=== PATIENT | female | born 1930 | race Caucasian/White ===

== ENCOUNTER 2016-12-02 22:40 | Emergency (ER) | payer MEDICARE, OTHER ==
[2016-12-02 23:07] VITALS: BP 211/86
[2016-12-02 23:47] LABS: CHLORIDE,CL 97 mmol/L (98-115); SODIUM,NA 133 mmol/L (136-145)
--- NOTE | 2016-12-02 23:47 | EDM.PDOC ---
ED HPI GENERAL MEDICAL PROBLEM - General Chief Complaint: General Stated Complaint: LOSS OF MEMORY Time Seen by Provider: 12/02/16 23:21 Source of Information: Reports: Patient, Family History Limitations: Reports: No Limitations - History of Present Illness INITIAL COMMENTS - FREE TEXT/NARRATIVE: PT STATES SHE FELT FINE ALL DAY BUT THIS EVENING DEVELOPED DIFFICULTY CONCENTRATION. FAMILY SPOKE WITH PT ON PHONE EARLIER IN DAY AND SAID SHE WAS ACTING FINE. HOWEVER WHEN THEY ARRIVED AT HOUSE, PT WAS FORGETFUL AND CONFUSED. PT DENIES CP, SOB, R[place], DIZZINESS, FALL, FEVER, ABD PAIN OR N/V/D. Onset: Today Onset Date: 12/02/16 Duration: Hour(s):, Improving Improves with: Reports: None Worsens with: Reports: None Associated Symptoms: Reports: No Other Symptoms. Denies: Chest Pain, Cough, Fever/Chills, Headaches, Nausea/Vomiting, Shortness of Breath, Weakness - Related Data Home Meds: Home Meds Cephalexin [Keflex] 500 mg PO TID #21 cap 12/03/16 [Rx] Past Medical History - Past Health History Medical/Surgical History: Denies Medical/Surgical History ED ROS GENERAL - Review of Systems Review Of Systems: ROS reveals no pertinent complaints other than HPI. Constitutional: Reports: No Symptoms HEENT: Reports: No Symptoms Respiratory: Reports: No Symptoms Cardiovascular: Reports: No Symptoms Endocrine: Reports: No Symptoms GI/Abdominal: Reports: No Symptoms : Reports: No Symptoms Musculoskeletal: Reports: No Symptoms Skin: Reports: No Symptoms Neurological: Reports: Confusion. Denies: Dizziness, Headache, Trouble Speaking , Change in Speech, Gait Disturbance Psychiatric: Reports: No Symptoms Hematologic/Lymphatic: Reports: No Symptoms Immunologic: Reports: No Symptoms ED EXAM, GENERAL - Physical Exam Exam: See Below Exam Limited By: No Limitations General Appearance: Alert, WD/WN, No Apparent Distress Eye Exam: Bilateral Eye: Normal Inspection Ears: Normal External Exam, Normal Canal Nose: Normal Inspection, Normal Mucosa, No Blood Throat/Mouth: Normal Inspection, Normal Oropharynx, No Airway Compromise Head: Atraumatic, Normocephalic Neck: Normal Inspection, Supple, Non-Tender, Full Range of Motion Respiratory/Chest: No Respiratory Distress, Lungs Clear, Normal Breath Sounds, No Accessory Muscle Use, Chest Non-Tender Cardiovascular: Regular Rate, Rhythm, No Murmur GI/Abdominal: Normal Bowel Sounds, Soft, Non-Tender, No Organomegaly, No Distention, No Abnormal Bruit, No Mass Back Exam: Normal Inspection. No: CVA Tenderness (L), CVA Tenderness (R) Extremities: Normal Inspection, No Pedal Edema Neurological: Alert, Oriented, CN II-XII Intact, Normal Cognition, No Motor/ Sensory Deficits Psychiatric: Normal Affect, Normal Mood Skin Exam: Warm, Dry, Intact, Normal Color, No Rash Lymphatic: No Adenopathy Course - Vital Signs Last Recorded V/S: Last Vital Signs Temp 98.4 F 12/02/16 23:01 Pulse 90 12/02/16 23:01 Resp 16 12/02/16 23:01 BP 211/86 H 12/02/16 23:01 Pulse Ox 94 L 12/02/16 23:01 - Orders/Labs/Meds Orders: Active Orders 24 hr Category Date Time Status CBC WITH AUTO DIFF [HEME] Stat Lab 12/02/16 23:22 Ordered COMPREHENSIVE METABOLIC PN,CMP [CHEM] Stat Lab 12/02/16 23:22 Ordered UA W/MICROSCOPIC [URIN] Stat Lab 12/02/16 23:22 Uncollected - Re-Assessments/Exams Free Text/Narrative Re-Assessment/Exam: 12/03/16 00:23 PT AFEBRILE, NONTOXIC APPEARING, VSS, FEELS BETTER, FAMILY AT BEDSIDE. ROCEPHIN GIVEN / KEFLEX RX Departure - Departure Time of Disposition: 00:25 Disposition: Home, Self-Care 01 Condition: Good Clinical Impression: UTI, Urinary tract infectious disease - Discharge Information Instructions: Urinary Tract Infection, Adult, [id number] Referrals: Catia Tariq, SANDBLAST OPERATOR [Nurse Practitioner] - Forms: ED Department Discharge Additional Instructions: FOLLOW UP AT [facility] IN 3-5 DAYS FOR RECHECK. RETURN TO ER SOONER IF SYMPTOMS CONTINUE - My Orders Last 24 Hours: My Active Orders 12/02/16 23:22 CBC WITH AUTO DIFF [HEME] Stat COMPREHENSIVE METABOLIC PN,CMP [CHEM] Stat UA W/MICROSCOPIC [URIN] Stat - Assessment/Plan Last 24 Hours: My Active Orders 12/02/16 23:22 CBC WITH AUTO DIFF [HEME] Stat COMPREHENSIVE METABOLIC PN,CMP [CHEM] Stat UA W/MICROSCOPIC [URIN] Stat Assessment:: UTI Plan: F/U WITH PCP IN 3-5 DAYS
[2016-12-03] MEDS ORDERED: cefTRIAXone 1 GM Vial IM ONE (00:21)
[2016-12-03] MEDS ORDERED: Lidocaine 1% 20 ML MDV ONE (00:28)
== END 2016-12-03 00:45 | disposition home or self-care (01) ==
LOC: KA.ED 22:40
DX: N39.0 Urinary tract infection, site not specified (principal); Z88.1 Allergy status to other antibiotic agents
CPT/HCPCS: 36415; 80053; 81001; 85025; 96372; 99284; J0696

== ENCOUNTER 2016-12-21 17:41 | Emergency (ER) | payer MEDICARE, OTHER ==
[2016-12-21] MEDS ORDERED: Morphine 2 MG/ML Syringe IVPUSH ONE (18:10)
[2016-12-21] MEDS ORDERED: Aspirin 81 MG Tab.Chew PO ONE (18:17)
[2016-12-21] MEDS ORDERED: Aspirin 81 MG Tab.Chew ONE (18:17)
[2016-12-21 18:58] LABS: CHLORIDE,CL 94 mmol/L (98-115); SODIUM,NA 132 mmol/L (136-145)
[2016-12-21] MEDS ORDERED: Acetaminophen 500 MG Tab PO ONE (19:41)
--- NOTE | 2016-12-21 20:12 | EDM.PDOC ---
<Akshat Rocha - Last Filed: 12/21/16 20:42> ED HPI GENERAL MEDICAL PROBLEM - General Chief Complaint: Headache Stated Complaint: HEADACHE Time Seen by Provider: 12/21/16 17:45 Source of Information: Reports: Patient, Family (son-in-law and daughter) - History of Present Illness INITIAL COMMENTS - FREE TEXT/NARRATIVE: 86-year-old female presents to the emergency room brought in by her family this evening with complaints of a severe headache. Patient reports headache began approximately 4:00 this afternoon. She took 3 ibuprofen and reports no relief. She denies shortness of breath, chest pain, palpitations, or weakness in her arms or legs. She denies difficulty with speech, visual changes, balance or gait. She rates her pain an 8 out of 10. She had a similar headache 2 days prior but resolved. Family was concerned because she never complains her has headaches in the past. She denies any prior history of a stroke or denies prior heart problems. She takes medication for hypertension, high cholesterol, diabetes. These involve been well controlled. Her primary care is provided by Dr.Vani Owens. She is having some recent lab work and is currently being treated for a urinary tract infection. She's not had any confusion or agitation. She also has a history of mildly low sodium and there is discussion about changing her blood pressure medications she is on a check calcium channel sofia. Her blood pressures have been fairly well controlled but are elevated this evening upon arrival to the ER. Onset: Today Onset Date: 12/21/16 Onset Time: 16:00 Duration: Hour(s):, Constant Location: Reports: Head Quality: Reports: Throbbing Severity: Severe Improves with: Reports: None Worsens with: Reports: None Associated Symptoms: Reports: Headaches. 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 Headache Pain Score (Numeric/FACES): 8 - Related Data Allergies Allergy/AdvReac Type Severity Reaction Status Date / Time Sulfa (Sulfonamide Allergy Muscle Verified 12/21/16 18:00 Antibiotics) Aches Home Meds: Home Meds Diltiazem [Dilacor XR] 240 mg PO DAILY 12/03/16 [History] Simvastatin [Zocor] 20 mg PO BEDTIME 12/03/16 [History] sitaGLIPtin Phos/Metformin HCl [Janumet 50-500 MG] 50 - 500 mg PO DAILY [History] Aspirin [Halfprin] 81 mg PO DAILY 12/21/16 [History] Ciprofloxacin HCl [Cipro] 500 mg PO BID 12/21/16 [History] Past Medical History - Past Health History Medical/Surgical History: Denies Medical/Surgical History HEENT History: Reports: Cataract, Hard of Hearing, Impaired Vision Cardiovascular History: Reports: High Cholesterol, Hypertension Gastrointestinal History: Reports: Chronic Constipation, GERD Musculoskeletal History: Reports: Arthritis Psychiatric History: Reports: Anxiety, Depression Endocrine/Metabolic History: Reports: Diabetes, Type II - Past Surgical History HEENT Surgical History: Reports: Cataract Surgery GI Surgical History: Reports: Appendectomy Female Surgical History: Reports: Hysterectomy Social & Family History - Tobacco Use Smoking Status *Q: Never Smoker Second Hand Smoke Exposure: No - Caffeine Use Caffeine Use: Reports: Coffee - Recreational Drug Use Recreational Drug Use: No ED ROS GENERAL - Review of Systems Review Of Systems: See Below Constitutional: Denies: Fever, Chills, Weakness, Fatigue, Diaphoresis HEENT: Reports: Glasses Respiratory: Denies: Shortness of Breath, Cough Cardiovascular: Reports: Blood Pressure Problem. Denies: Chest Pain, Dyspnea on Exertion, Edema, Lightheadedness, Palpitations Endocrine: Reports: High Glucose GI/Abdominal: Reports: No Symptoms : Reports: Other (recent UTI, on meds) Musculoskeletal: Denies: Neck Pain, Shoulder Pain, Arm Pain, Back Pain, Muscle Stiffness Skin: Reports: No Symptoms Neurological: Reports: Headache. Denies: Confusion, Dizziness, Numbness, Paresthesia, Pre-Existing Deficit, Seizure, Syncope, Tingling, Trouble Speaking , Difficulty Walking, Weakness, Change in Speech, Gait Disturbance Psychiatric: Reports: No Symptoms Hematologic/Lymphatic: Reports: No Symptoms Immunologic: Reports: No Symptoms - Physical Exam Exam: See Below Exam Limited By: No Limitations General Appearance: Alert, WD/WN, No Apparent Distress Eye Exam: Bilateral Eye: EOMI, PERRL Ears: Normal External Exam, Normal Canal, Hearing Grossly Normal, Normal TMs Nose: Normal Inspection, No Blood Throat/Mouth: Normal Inspection, Normal Lips, Normal Oropharynx, Normal Voice, No Airway Compromise Head Exam: Atraumatic, Normocephalic Neck: Normal Inspection, Supple, Non-Tender, Full Range of Motion. No: Carotid Bruit, Lymphadenopathy (L), Lymphadenopathy (R), Thyromegaly Respiratory/Chest: No Respiratory Distress, Lungs Clear, Normal Breath Sounds, No Accessory Muscle Use, Chest Non-Tender Cardiovascular: Normal Peripheral Pulses, Regular Rate, Rhythm, No Edema, No JVD GI/Abdominal: Normal Bowel Sounds, Soft, No Abnormal Bruit Neuro Exam (Abbreviated): Alert, Oriented, CN II-XII Intact, Normal Cognition, Normal Reflexes, No Motor/Sensory Deficits DTR: 2+: Bicep (R), Bicep (L), Tricep (R), Tricep (L), Patella (R), Patella (L) , Achilles (R), Achilles (L) Back Exam: Normal Inspection, Full Range of Motion Extremities: Normal Inspection, Normal Range of Motion, Non-Tender, No Pedal Edema, Normal Capillary Refill, Other (motor strength are 5 out of 5 bilaterally upper and lower extremities. Patient has no pain or discomfort with gentle range of motion of the ankle knees or hips fingers wrist elbows or shoulders.) Psychiatric: Normal Affect, Normal Mood Skin Exam: Warm, Dry, Intact, Normal Color, No Rash EKG INTERPRETATION EKG Date: 12/21/16 Time: 18:15 Rhythm: NSR Rate (Beats/Min): 77 P-Wave: Present QRS: Normal ST-T: Depressed QT: Normal Comparison: NA - No Prior EKG EKG Interpretation Comments: Normal sinus rhythm Anterior septal infarct, age undetermined Abnormal ECG Course - Vital Signs Last Recorded V/S: Last Vital Signs Temp 99.7 F 12/21/16 17:55 Pulse 75 12/21/16 17:55 Resp 16 12/21/16 17:55 BP 232/97 H 12/21/16 17:55 Pulse Ox 95 12/21/16 17:55 - Orders/Labs/Meds Orders: Active Orders 24 hr Category Date Time Status EKG Documentation Completion [RC] ASDIRECTED Care 12/21/16 18:07 Active Head wo Cont [CT] Stat Exams 12/21/16 19:50 Taken EKG 12 Lead [EK] Routine Ther 12/21/16 18:06 Ordered Labs: Laboratory Tests 12/21/16 12/21/16 12/21/16 Range/Units 17:50 17:50 17:50 WBC 7.6 (5.0-10.0) 10^3/uL RBC 4.81 (3.80-5.50) 10^6/uL Hgb 14.0 (12.0-16.0) g/dL Hct 41.4 (37.0-47.0) % MCV 86.0 (82.0-92.0) fL MCH 29.0 (27.0-31.0) pg MCHC 33.7 (32.0-36.0) g/dL RDW 13.1 (11.5-14.5) % Plt Count 237 (150-300) 10^3/uL MPV 7.9 (7.4-10.4) fL Neut % (Auto) 54.0 (50.0-70.0) % Lymph % (Auto) 35.9 (20.0-40.0) % Glasscock % (Auto) 7.3 (2.0-8.0) % Eos % (Auto) 2.1 (1.0-3.0) % Baso % (Auto) 0.7 (0.0-1.0) % Neut # (Auto) 4.0 (2.5-7.0) 10^3/uL Lymph # (Auto) 2.7 (1.0-4.0) 10^3/uL Glasscock # (Auto) 0.6 (0.1-0.8) 10^3/uL Eos # (Auto) 0.2 (0.1-0.3) 10^3/uL Baso # (Auto) 0.1 (0.0-0.1) 10^3/uL ESR 10 (0-20) mm/hr Sodium 132 L (136-145) mmol/L Potassium 4.1 (3.3-5.3) mmol/L Chloride 94 L (98-115) mmol/L Carbon Dioxide 28.5 (21.0-32.0) mmol/L BUN 14 (6-25) mg/dL Creatinine 0.69 (0.51-1.17) mg/dL Est Cr Clr Drug Dosing 42.82 mL/min Estimated GFR (MDRD) > 60 mL/min Glucose 98 (70-110) mg/dL Calcium 8.7 (8.7-10.3) mg/dL Troponin I 0.07 (0.00-0.070) ng/mL C-Reactive Protein 0.2 (0.0-0.9) mg/dL Specimen Type Urine Color (YELLOW) Urine Appearance (CLEAR) Urine pH (5.0-9.0) Ur Specific Ulster (1.005-1.030) Urine Protein (NEGATIVE) mg/dL Urine Glucose (UA) (NEGATIVE) mg/dL Urine Ketones (NEGATIVE) mg/dL Urine Occult Blood (NEGATIVE) Urine Nitrite (NEGATIVE) Urine Bilirubin (NEGATIVE) Urine Urobilinogen (0.2-1.0) E.U./dL Ur Leukocyte Esterase (NEGATIVE) Urine RBC /HPF Urine WBC /HPF Ur Epithelial Cells /LPF Urine Bacteria (NONE TO FEW) /HPF Hyaline Casts (NEGATIVE) /LPF 12/21/16 Range/Units 18:50 WBC (5.0-10.0) 10^3/uL RBC (3.80-5.50) 10^6/uL Hgb (12.0-16.0) g/dL Hct (37.0-47.0) % MCV (82.0-92.0) fL MCH (27.0-31.0) pg MCHC (32.0-36.0) g/dL RDW (11.5-14.5) % Plt Count (150-300) 10^3/uL MPV (7.4-10.4) fL Neut % (Auto) (50.0-70.0) % Lymph % (Auto) (20.0-40.0) % Glasscock % (Auto) (2.0-8.0) % Eos % (Auto) (1.0-3.0) % Baso % (Auto) (0.0-1.0) % Neut # (Auto) (2.5-7.0) 10^3/uL Lymph # (Auto) (1.0-4.0) 10^3/uL Glasscock # (Auto) (0.1-0.8) 10^3/uL Eos # (Auto) (0.1-0.3) 10^3/uL Baso # (Auto) (0.0-0.1) 10^3/uL ESR (0-20) mm/hr Sodium (136-145) mmol/L Potassium (3.3-5.3) mmol/L Chloride (98-115) mmol/L Carbon Dioxide (21.0-32.0) mmol/L BUN (6-25) mg/dL Creatinine (0.51-1.17) mg/dL Est Cr Clr Drug Dosing mL/min Estimated GFR (MDRD) mL/min Glucose (70-110) mg/dL Calcium (8.7-10.3) mg/dL Troponin I (0.00-0.070) ng/mL C-Reactive Protein (0.0-0.9) mg/dL Specimen Type Urincc Urine Color Yellow (YELLOW) Urine Appearance Clear (CLEAR) Urine pH 7.5 (5.0-9.0) Ur Specific [place] 1.015 (1.005-1.030) Urine Protein Negative (NEGATIVE) mg/dL Urine Glucose (UA) Negative (NEGATIVE) mg/dL Urine Ketones Negative (NEGATIVE) mg/dL Urine Occult Blood Negative (NEGATIVE) Urine Nitrite Negative (NEGATIVE) Urine Bilirubin Negative (NEGATIVE) Urine Urobilinogen 0.2 (0.2-1.0) E.U./dL Ur Leukocyte Esterase Small H (NEGATIVE) Urine RBC 0-5 /HPF Urine WBC 10-20 H /HPF Ur Epithelial Cells Few /LPF Urine Bacteria Few (NONE TO FEW) /HPF Hyaline Casts Rare H (NEGATIVE) /LPF Meds: Medications Discontinued Medications Generic Name Dose Route Start Last Admin Trade Name Juanpabloq PRN Reason Stop Dose Admin Acetaminophen 1,000 mg 12/21/16 19:41 12/21/16 19:56 Tylenol Extra Strength PO 12/21/16 19:42 1,000 mg ONETIME ONE Administration Aspirin 324 mg 12/21/16 18:17 12/21/16 18:19 Aspirin PO 12/21/16 18:18 324 mg ONETIME ONE Administration Aspirin Confirm 12/21/16 18:17 12/21/16 18:28 Aspirin Administered 12/21/16 18:18 Not Given Dose 324 mg .ROUTE .STK-MED ONE Morphine Sulfate 2 mg 12/21/16 18:10 12/21/16 18:38 Morphine IVPUSH 12/21/16 18:11 2 mg ONETIME ONE Administration - Re-Assessments/Exams Free Text/Narrative Re-Assessment/Exam: 12/21/16 19:35 Patient reports that her headache had improved at least by 50%. She was given 2 mg of IV morphine. Her blood pressures come down nicely as her pain improved. Free Text/Narrative Re-Assessment/Exam: 12/21/16 20:36 Patient was given 1000 mg of Tylenol by mouth. CT scan was ordered for her head. She was resting comfortably. Her exam remained unchanged and remain neurologically intact. Departure - Departure Disposition: Home, Self-Care 01 Clinical Impression: Hypertensive urgency Headache Qualifiers: Headache type: unspecified Headache chronicity pattern: acute headache - Discharge Information Referrals: Kavitha Owens MD [Primary Care Provider] - Forms: ED Department Discharge Additional Instructions: 1. TAke your regular home medications as directed. 2. Continue your antibiotic for the UTI as directed and followup with your PCP for recheck of the urine after the antibiotic is completed. 3. Drink 8 cups of water daily and continue the cranberry juice to see if you can improve the recurrent UTI problem. 4. Follow up with your PCP tomorrow for recheck of the headache and blood pressure. 5. Take the hydrocodone as directed if needed for your headache tonight. <Leonardo Woods - Last Filed: 12/21/16 21:30> Course - Re-Assessments/Exams Free Text/Narrative Re-Assessment/Exam: 12/21/16 21:25 Reviewed Akshat's note and the test results for this patient. Head CT is negative. Patient is feeling much better, headache is almost gone, and blood pressure has stabilized at 174 systolic. Discussed findings and treatment plan with patient and her family. She wonders what she should do if the headache comes back tonight before she sees Dr. Plummer tomorrow. I feel that with all the normal workup tonight it would be reasonable to have a few Hydrocodone if she needs so will send home #4 5/325 with her to use if needed. Patient is stable and exam and neurological status are unchanged at discharge. Departure - Departure Time of Disposition: 21:17 Condition: Good
[2016-12-21] MEDS ORDERED: Acetaminophen/HYDROcodone 325-5 MG Tab PO ONE (21:23)
[2016-12-21 23:33] VITALS: BP 174/78
== END 2016-12-21 21:40 | disposition home or self-care (01) ==
LOC: KA.ED 17:41
DX: I16.0 Hypertensive urgency (principal); I10 Essential (primary) hypertension; M19.90 Unspecified osteoarthritis, unspecified site; E11.9 Type 2 diabetes mellitus without complications; F32.9 Major depressive disorder, single episode, unspecified; F41.9 Anxiety disorder, unspecified; E78.00 Pure hypercholesterolemia, unspecified; K21.9 Gastro-esophageal reflux disease without esophagitis; Z88.2 Allergy status to sulfonamides; Z79.82 Long term (current) use of aspirin; Z79.899 Other long term (current) drug therapy; Z90.89 Acquired absence of other organs; Z90.710 Acquired absence of both cervix and uterus
CPT/HCPCS: 70450; 80048; 81001; 84484; 85025; 85651; 86140; 96374; 99284; A9270; J2270; 93005

== ENCOUNTER 2017-02-08 09:28 | Observation (INO) | payer MEDICARE, OTHER ==
[2017-02-08] MEDS ORDERED: Sodium Chloride 0.9% 5 ML Syringe FLUSH PRN (09:42)
--- NOTE | 2017-02-08 09:52 | EDM.PDOC ---
ED HPI GENERAL MEDICAL PROBLEM - General Chief Complaint: Neurological Problem Stated Complaint: POSSIBLE STROKE? Time Seen by Provider: 02/08/17 09:42 Source of Information: Reports: Patient, EMS, EMS Notes Reviewed, Family History Limitations: Reports: No Limitations - History of Present Illness INITIAL COMMENTS - FREE TEXT/NARRATIVE: PER PT'S DAUGHTER, PT WAS FOUND AT 0815 TODAY LYING ON BED AND NOT VERBALLY RESPONDING AND SEEMED WEAK IN EXTREMITIES. DAUGHTER STATES BED WAS MADE AND MOTHER WAS LYING ON TOP OF COMFORTER. PT WENT TO SLEEP AT 2130 LAST NIGHT. UNEVENTFUL EVENING ACCORDING TO DAUGHTER. UNSURE OF EVENTS THIS AM PRIOR TO SYMPTOMS. CALLED 911 AND BY TIME EMS RESPONDED PT'S WAS VERBALIZING AND MOVING ALL EXTREMITIES. DURING TRANSPORT, PT BECAME ANXIOUS AND UNABLE TO VERBALIZE BUT WAS MOVING EXTREMITIES. PT FOLLOWS MY COMMANDS BUT APPEARS ANXIOUS. DAUGHTER STATES PT HAS BEEN DEPRESSED LATELY BECAUSE SHE IS BEING PLACED IN ASSISTED LIVING. Onset: Today Onset Date: 02/08/17 Onset Time: 08:15 - Related Data Allergies Allergy/AdvReac Type Severity Reaction Status Date / Time Sulfa (Sulfonamide Allergy Muscle Verified 12/21/16 18:00 Antibiotics) Aches Home Meds: Home Meds Diltiazem [Dilacor XR] 240 mg PO DAILY 12/03/16 [History] Simvastatin [Zocor] 20 mg PO BEDTIME 12/03/16 [History] sitaGLIPtin Phos/Metformin HCl [Janumet 50-500 MG] 50 - 500 mg PO DAILY [History] Aspirin [Halfprin] 81 mg PO DAILY 12/21/16 [History] Ciprofloxacin HCl [Cipro] 500 mg PO BID 12/21/16 [History] Past Medical History - Past Health History Medical/Surgical History: Denies Medical/Surgical History HEENT History: Reports: Cataract, Hard of Hearing, Impaired Vision Cardiovascular History: Reports: High Cholesterol, Hypertension Gastrointestinal History: Reports: Chronic Constipation, GERD Genitourinary History: Reports: UTI, Recurrent Musculoskeletal History: Reports: Arthritis Psychiatric History: Reports: Anxiety, Depression Endocrine/Metabolic History: Reports: Diabetes, Type II - Past Surgical History HEENT Surgical History: Reports: Cataract Surgery GI Surgical History: Reports: Appendectomy Female Surgical History: Reports: Hysterectomy Social & Family History - Tobacco Use Smoking Status *Q: Never Smoker Second Hand Smoke Exposure: No - Caffeine Use Caffeine Use: Reports: Coffee - Recreational Drug Use Recreational Drug Use: No ED ROS GENERAL - Review of Systems Review Of Systems: ROS reveals no pertinent complaints other than HPI. Constitutional: Reports: No Symptoms HEENT: Reports: No Symptoms Respiratory: Reports: No Symptoms Cardiovascular: Reports: No Symptoms Endocrine: Reports: No Symptoms GI/Abdominal: Reports: No Symptoms : Reports: No Symptoms Musculoskeletal: Reports: No Symptoms Skin: Reports: No Symptoms Neurological: Reports: Weakness, Change in Speech Psychiatric: Reports: Agitation, Anxiety Hematologic/Lymphatic: Reports: No Symptoms Immunologic: Reports: No Symptoms ED EXAM, NEURO - Physical Exam Exam: See Below Exam Limited By: No Limitations General Appearance: Alert, Anxious Eye Exam: Bilateral Eye: Normal Inspection Nose: Normal Inspection, Normal Mucosa, No Blood Throat/Mouth: Normal Inspection, Normal Oropharynx, No Airway Compromise Head Exam: Atraumatic, Normocephalic Neck: Normal Inspection, Supple Respiratory/Chest: No Respiratory Distress, Lungs Clear, Normal Breath Sounds, No Accessory Muscle Use, Chest Non-Tender Cardiovascular: Regular Rate, Rhythm, No Murmur GI/Abdominal: Normal Bowel Sounds, Soft, Non-Tender, No Organomegaly, No Distention, No Abnormal Bruit, No Mass Neurological: Alert, Normal Dorsiflexion, CN II-XII Intact, Normal Plantar Flexion, No Motor/Sensory Deficits, Other (MOVES EXTREMITIES BUT DOES NOT VERBALIZE. NO NEUROFOCAL DEFICITS NOTED) Back Exam: Normal Inspection. No: CVA Tenderness (L), CVA Tenderness (R) Extremities: Normal Inspection, No Pedal Edema Psychiatric: Anxious Skin Exam: Warm, Dry, Intact, Normal Color, No Rash EKG INTERPRETATION EKG Date: 02/08/17 Time: 09:50 Rhythm: NSR Rate (Beats/Min): 82 [place]: Normal P-Wave: Present QRS: Normal ST-T: Normal QT: Normal Comparison: No Change Course - Orders/Labs/Meds Orders: Active Orders 24 hr Category Date Time Status EKG Documentation Completion [RC] ASDIRECTED Care 02/08/17 09:43 Active Peripheral IV Care [RC] . DIRECTED Care 02/08/17 09:43 Active Chest 1V Frontal [CR] Stat Exams 02/08/17 09:42 Ordered Head wo Cont [CT] Stat Exams 02/08/17 09:42 Ordered COMPREHENSIVE METABOLIC PN,CMP [CHEM] Stat Lab 02/08/17 09:42 Ordered INR,PT,PROTHROMBIN TIME [COAG] Stat Lab 02/08/17 09:42 Ordered PTT,PARTIAL THROMBOPLSTIN TIME [COAG] Stat Lab 02/08/17 09:42 Ordered TROPONIN I [CHEM] Stat Lab 02/08/17 09:42 Ordered UA W/MICROSCOPIC [URIN] Stat Lab 02/08/17 10:02 Uncollected Sodium Chloride 0.9% [Syrex Flush] Med 02/08/17 09:42 Active 5 ml FLUSH Q8HR PRN Peripheral IV Insertion Adult [OM.PC] Urgent Oth 02/08/17 09:42 Ordered EKG 12 Lead [EK] Stat Ther 02/08/17 09:42 Ordered Medication Orders Sodium Chloride (Syrex Flush) 5 ml FLUSH Q8HR PRN PRN Reason: Keep Vein Open Labs: Laboratory Tests 02/08/17 Range/Units 09:45 WBC 9.7 (5.0-10.0) 10^3/uL RBC 5.17 (3.80-5.50) 10^6/uL Hgb 14.8 (12.0-16.0) g/dL Hct 45.4 (37.0-47.0) % MCV 87.8 (82.0-92.0) fL MCH 28.6 (27.0-31.0) pg MCHC 32.6 (32.0-36.0) g/dL RDW 12.8 (11.5-14.5) % Plt Count 277 (150-300) 10^3/uL MPV 7.3 L (7.4-10.4) fL Neut % (Auto) 68.9 (50.0-70.0) % Lymph % (Auto) 23.3 (20.0-40.0) % [place] % (Auto) 6.3 (2.0-8.0) % Eos % (Auto) 1.2 (1.0-3.0) % Baso % (Auto) 0.3 (0.0-1.0) % Neut # (Auto) 6.7 (2.5-7.0) 10^3/uL Lymph # (Auto) 2.3 (1.0-4.0) 10^3/uL [place] # (Auto) 0.6 (0.1-0.8) 10^3/uL Eos # (Auto) 0.1 (0.1-0.3) 10^3/uL Baso # (Auto) 0.0 (0.0-0.1) 10^3/uL Meds: Medications Generic Name Dose Route Start Last Admin Trade Name Freq PRN Reason Stop Dose Admin Sodium Chloride 5 ml 02/08/17 09:42 Syrex Flush FLUSH Q8HR PRN Keep Vein Open - Re-Assessments/Exams Free Text/Narrative Re-Assessment/Exam: 02/08/17 10:57 PT AFEBRILE, NONTOXIC APPEARING, VSS, DAUGHTER AT BEDSIDE. DISCUSSED CASE WITH DR BECK, NEUROSURGERY AT [facility]. BECAUSE [facility] WITHOUT NEURO FOCAL DEFICITS, RECOMMENDS ADMISSION AND NEURO CHECKS AND NO TRANSFER AT THIS TIME. DISCUSSED CASE WITH DR MUNGUIA, [facility], WILL ADMIT AND FOLLOW Departure - Departure Time of Disposition: 11:00 Disposition: Admitted As Inpatient 67 Condition: Fair Clinical Impression: Hyponatremia, Anxiety and depression Altered mental status, unspecified Qualifiers: Altered mental status type: unspecified Qualified Code(s): R41.82 - Altered mental status, unspecified - Discharge Information Referrals: Kavitha Owens MD [Primary Care Provider] - Forms: ED Department Discharge - My Orders Last 24 Hours: My Active Orders 02/08/17 09:42 Chest 1V Frontal [CR] Stat Head wo Cont [CT] Stat COMPREHENSIVE METABOLIC PN,CMP [CHEM] Stat INR,PT,PROTHROMBIN TIME [COAG] Stat PTT,PARTIAL THROMBOPLSTIN TIME [COAG] Stat TROPONIN I [CHEM] Stat Sodium Chloride 0.9% [Syrex Flush] 5 ml FLUSH Q8HR PRN Peripheral IV Insertion Adult [OM.PC] Urgent EKG 12 Lead [EK] Stat 02/08/17 09:43 EKG Documentation Completion [RC] ASDIRECTED Peripheral IV Care [RC] . DIRECTED 02/08/17 10:02 UA W/MICROSCOPIC [URIN] Stat - Assessment/Plan Last 24 Hours: My Active Orders 02/08/17 09:42 Chest 1V Frontal [CR] Stat Head wo Cont [CT] Stat COMPREHENSIVE METABOLIC PN,CMP [CHEM] Stat INR,PT,PROTHROMBIN TIME [COAG] Stat PTT,PARTIAL THROMBOPLSTIN TIME [COAG] Stat TROPONIN I [CHEM] Stat Sodium Chloride 0.9% [Syrex Flush] 5 ml FLUSH Q8HR PRN Peripheral IV Insertion Adult [OM.PC] Urgent EKG 12 Lead [EK] Stat 02/08/17 09:43 EKG Documentation Completion [RC] ASDIRECTED Peripheral IV Care [RC] . DIRECTED 02/08/17 10:02 UA W/MICROSCOPIC [URIN] Stat Assessment:: ANXIETY / PANIC ATTACK VS TIA Plan: ADMIT INPATIENT
[2017-02-08 10:32] LABS: CHLORIDE,CL 93 mmol/L (98-115); SODIUM,NA 129 mmol/L (136-145)
[2017-02-08] MEDS ORDERED: Sodium Chloride 0.9% 1,000 ML IV ONE ×2 (10:44→22:50)
[2017-02-08] MEDS ORDERED: Acetaminophen 325 MG Tab PO PRN (11:04)
--- NOTE | 2017-02-08 12:20 | PCM.HP ---
H&P History of Present Illness - General Date of Service: 02/08/17 Admit Problem/Dx: Acute encephalopathy Source of Information: Patient, EMS, Family, Old Records, Provider (Ambrosio Swartz NP (ED provider)) History Limitations: Reports: Altered Mental Status - History of Present Illness Initial Comments - Free Text/Narative: Ms. Fields is an 86yoF who was in her usual state of health last evening when she went to bed around 2130. She lives with her daughter and son-in-law in [facility] and was noted this morning around 0815 to be confused and lying on her made bed. She was initially not speaking and seemed to be generally weak , but without any other focal deficit. They called 911 and upon EMS arrival, she was speaking but seemed to be confused. At times en route, she was less confused and was able to talk about her children and grandchildren, while at other times was just answering yes to most questions and seemed quite confused. She was evaluated in the [facility] ED and was noted to have an altering level of consciousness and ability to appropriately answer questions and interact with examination. Work-up, including VS, CBC, CMP, troponin, UA, CXR, and CT head were overall unremarkable and provider discussed the case with Dr. Contreras , neurosurgeon cardiac catheterization technician with [facility], who felt that presentation was not consistent with acute neurological event and recommended admission for consideration of other etiology. Upon my evaluation of the patient in the ED about 1.5 hours after initial arrival in the ED, she was accompanied by her daughter and son-in-law who state this is quite out of the ordinary for her. Josefina is able to state her name and answer some questions, including that she is in no pain except in her abdomen. Daughter and son-in-law state that she is not confused at baseline and yesterday seemed to be a typical day without any concerns. There has been increased stress in the past few weeks as she currently lives with them in [facility] and this will be the first year she isn't going to be accompanying them to [place] for the winter and instead likely going to live in an assisted living facility. She saw her PCP Catia Tariq CNP, earlier last week and was started on mirtazapine for insomnia and possibility of mood disorder. She had taken this in the past several years ago and didn't start taking consistently, with the daughter only knowing that she took it for the first time last evening before going to bed. Josfeina manages her own medications, without prior concerns, but the daughter questions the possibility of a medication mix-up or that she took more than 1 tablet of the mirtazapine last night. She has otherwise been taking her other prescribed medications to their knowledge. She has remotely been on lorazepam, but not for over a year. Daughter is unaware of any other medications she had in her drawer. They deny any other concerns about her lately; see ROS. - Related Data Allergies/Adverse Reactions: Allergies Allergy/AdvReac Type Severity Reaction Status Date / Time Sulfa (Sulfonamide Allergy Muscle Verified 02/08/17 13:27 Antibiotics) Aches Home Medications: Home Meds Diltiazem [Dilacor XR] 240 mg PO BEDTIME 12/03/16 [History] Aspirin [Halfprin] 81 mg PO DAILY 12/21/16 [History] Docusate Sodium [Colace] 100 mg PO BEDTIME 02/08/17 [History] Gabapentin [Neurontin] 300 mg PO BEDTIME 02/08/17 [History] Hydrochlorothiazide 12.5 mg PO QAM 02/08/17 [History] Losartan Potassium 100 mg PO BEDTIME 02/08/17 [History] Mirtazapine [Remeron] 15 mg PO BEDTIME PRN 02/08/17 [History] Past Medical History - Past Health History Medical/Surgical History: Denies Medical/Surgical History HEENT History: Reports: Cataract, Hard of Hearing, Impaired Vision Cardiovascular History: Reports: High Cholesterol, Hypertension Gastrointestinal History: Reports: Chronic Constipation, GERD Genitourinary History: Reports: UTI, Recurrent Musculoskeletal History: Reports: Arthritis Psychiatric History: Reports: Anxiety, Depression Endocrine/Metabolic History: Reports: Diabetes, Type II - Past Surgical History HEENT Surgical History: Reports: Cataract Surgery GI Surgical History: Reports: Appendectomy Female Surgical History: Reports: Hysterectomy Social & Family History - Tobacco Use Smoking Status *Q: Never Smoker Second Hand Smoke Exposure: No - Caffeine Use Caffeine Use: Reports: Coffee - Recreational Drug Use Recreational Drug Use: No H&P Review of Systems - Review of Systems: Review Of Systems: See Below General: Reports: Weakness (generalized, nonfocal). Denies: Fever, Chills, Malaise, Fatigue, Diaphoresis, Decreased Appetite HEENT: Denies: Ear Pain, Eye Pain, Headaches, Sinus Congestion, Sore Throat, Visual Changes Pulmonary: Denies: Shortness of Breath, Wheezing, Cough Cardiovascular: Denies: Chest Pain, Palpitations, Edema, Syncope Gastrointestinal: Reports: Abdominal Pain. Denies: Anorexia, Constipation, Diarrhea, Decreased Appetite Genitourinary: Reports: Frequency (chronic), Incontinence (chronic, small volume ). Denies: Dysuria, Burning, Pain, Hematuria Musculoskeletal: Reports: Joint Pain (chronic bilateral knee pain). Denies: Neck Pain, Back Pain, Muscle Pain Skin: Denies: Cyanosis, Pallor, Rash Psychiatric: Reports: Confusion, Depression, Anxiety. Denies: Agitation, Hallucinations, Suicidal Ideation Neurological: Reports: Confusion, Trouble Speaking, Change in Speech. Denies: Dizziness, Headache, Numbness, Seizure, Syncope, Tremors, Gait Disturbance Exam - Exam Exam: See Below - Exam Physical Exam Comments:: GENERAL: Elderly white female lying in ED bed appearing anxious, but in no acute respiratory distress. HEENT: Normocephalic, atraumatic. Conjunctiva clear, pupils equal round and reactive to light but with moderate dilation on initial evaluation given the bright room, extraocular movements intact. Nares patent without discharge. Mucous membranes moist, posterior pharynx unremarkable. NECK: Supple, no masses. CV: Regular rate and rhythm, no murmurs, rubs, or gallops. 2+ radial, PT, and DP pulses. PULMONARY: Normal effort, clear to auscultation bilaterally, no wheezes, rales, or rhonchi. ABDOMEN: Initial evaluation with lower abdominal distension and tenderness to light palpation subsequently resolved after straight catheterization of 1300cc urine. Follow-up evaluation with positive bowel sounds and soft, nontender, nondistended. EXTREMITIES: Trace non-pitting edema of ankles and lower legs. No cyanosis or clubbing. MUSCULOSKELETAL: Moves all extremities well with prompting. Moving frequently. NEUROLOGICAL: CN II-XII intact. Sensation intact to painful stimuli in all extremities. No motor drift in any extremity. Limb ataxia unable to be understood so not performed. NIHSS = 4 (2 for not knowing month or age, 2 for aphasia). No nuchal rigidity or neck pain to palpation. DERMATOLOGIC: No rashes or suspicious lesions in exposed areas. PSYCHIATRIC: Alert, waxing and waning level of consciousness, obviously confused with aphasia but without dysarthria or word slurring, oriented to person but not place/time/situation, interactive but frequently answering "yes" to all questions inappropriately, anxious affect. - Patient Data Result Diagrams: 02/08/17 09:45 02/08/17 09:45 *Q Meaningful Use (ADM) - VTE *Q VTE Criteria *Q: - Stroke *Q Stroke Criteria *Q: - AMI *Q AMI Criteria *Q: Problem List Initiated/Reviewed/Updated: Yes Orders Last 24hrs: Active Orders 24 hr Category Date Time Status Resuscitation Status Routine Resus Stat 02/08/17 11:03 Ordered Medication Orders Acetaminophen (Tylenol) 650 mg PO Q4H PRN PRN Reason: analgesia/fever Sodium Chloride (Syrex Flush) 5 ml FLUSH Q8HR PRN PRN Reason: Keep Vein Open Assessment/Plan Comment:: Ms. Fields is an 86yoF with history notable for HTN and anxiety admitted for acute encephalopathy. Hospitalization problems: # Acute encephalopathy: Waxing and waning level of consciousness without focal neurological deficit consistent with acute delirium. Etiology favors anticholinergic syndrome in setting of recent initiation of mirtazepine, given the concomitant presence of urinary retention and moderately dilated pupils. She took mirtazapine for the first time in at least several nights last night and daughter also questions the possibility of her having taken more than one tablet or other medications in addition. Other etiologies more highly considered include hypertensive encephalopathy and acute anxiety. Of note, her mild hyponatremia is chronic for the past year. Other pertinent findings and work-up includes no focal neurological deficit (including any hx of seizure activity), no notable cardiac or pulmonary findings, unremarkable CT head, no evidence of infection (VS not consistent with SIRS/sepsis, normal WBC, normal CXR, normal UA, benign abdominal examination following catheterization of large volume of urine), no other CBC/CMP/cardiac enzyme abnormalities, no other known ingestions or other chronic medications known to cause acute delirium or withdrawal, or trauma. Of note, the case was discussed with Dr. Contreras who reviewed the CT head and did not feel the presentation was consistent with an acute cerebrovascular event and recommended admission for monitoring and evaluation for other etiologies. - Frequent neuro checks (q1h x4h, then q2h x4h, then q4h) - Continuous cardiac monitoring and close VS monitoring - Urine toxicology - Ammonia - AM CBC, CMP, TSH, B12 # Hypertension: Elevated upon initial evaluation in the ED with SBP in the 180s. Continue close monitoring. Continue home regimen and consider acute lowering if SBP persistently >180. # Urinary retention: Straight catheterization performed of 1300cc of clear urine. No prior hx of retention, which favors anticholinergic syndrome, as discussed above. # Hyponatremia and hypochloremia: Chronic and stable. Likely secondary to thiazide use. Recheck tomorrow. # Anxiety: Chronic and stable as of late according to daughter. There has been increased stress lately with consideration of a move into assisted living, but no recent acute stress events and when she went to bed last night, there were no concerns that the daughter knew about. She was recently started on mirtazapine for insomnia and mood disorder. Chronic conditions: # Constipation: Stable. Continue Miralax and docusate prn. # Hx DMT2: A1c 5.6% 1 month ago. BG reasonable in ED. Will check intermittently. Continue without medications. # Peripheral neuropathy: Stable. Hold gabapentin in the setting of acute ecephalopathy. # Osteoarthritis: Stable. Continue Tylenol prn. Hospitalization details: # FEN: No IVF. Electrolytes with chronic and stable hyponatremia and hypochloremia, as above; recheck tomorrow. Heart healthy diet. # PPX: Enoxaparin for DVT ppx. # Code status: DNR/DNI. # Emergency contact: Camilla Pearce, daughter and [facility] ([phone]). # Disposition: Admit to observation status for acute encephalopathy.
[2017-02-08] MEDS ORDERED: Ondansetron 4 MG/2 ML SDV IVPUSH PRN (14:30)
[2017-02-08] MEDS ORDERED: Labetalol 100 MG/20 ML MDV IVPUSH ONE (16:40)
[2017-02-08] MEDS ORDERED: Acetaminophen 650 MG Supp RECTAL PRN (19:39)
[2017-02-08] MEDS ORDERED: Lidocaine 2% 100 MG/5 ML Syringe IVPUSH PRN (20:26)
[2017-02-08] MEDS ORDERED: Atropine 0.1 MG/ML 10 ML Syringe IVPUSH PRN (20:26)
[2017-02-08] MEDS ORDERED: EPINEPHrine 1:10,000 1 MG/10 ML Syringe IVPUSH PRN (20:26)
[2017-02-08] MEDS ORDERED: Nitroglycerin 0.4 MG Tab.SL SL PRN (20:26)
[2017-02-08] MEDS ORDERED: Diltiazem 240 MG Cap.CD PO SCH (21:00)
[2017-02-08] MEDS ORDERED: Docusate Sodium 100 MG Cap PO SCH (21:00)
[2017-02-08] MEDS ORDERED: Losartan 50 MG Tab PO SCH (21:00)
[2017-02-09] MEDS ORDERED: Sodium Chloride 0.9% 1,000 ML IV SCH (01:30)
[2017-02-09 07:54] LABS: CHLORIDE,CL 100 mmol/L (98-115); SODIUM,NA 135 mmol/L (136-145)
[2017-02-09] MEDS ORDERED: Aspirin 81 MG Tab.EC PO SCH (09:00)
[2017-02-09] MEDS ORDERED: Hydrochlorothiazide 12.5 MG Cap PO SCH (09:00)
[2017-02-09] MEDS ORDERED: Potassium Chloride 20 MEQ Tab.ER PO ONE (09:40)
[2017-02-09 14:36] VITALS: BP 127/78
--- NOTE | 2017-02-09 18:08 | PCM.DCSUM1 ---
Discharge Summary - Hospital Course Free Text/Narrative:: Admission diagnoses: 1. Acute encephalopathy 2. Hypertensive urgency 3. Urinary retention 4. Hyponatremia 5. Anxiety Discharge diagnoses: 1. Acute encephalopathy, resolved 2. Hypertensive urgency, resolved 3. Urinary retention, resolved 4. Hyponatremia, resolved 5. Anxiety 6. 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 Baseline mild cognitive impairment Consultations: None Procedures: None Hospital course: Ms. Fields is an 86yoF with history notable for HTN and anxiety admitted for acute encephalopathy on 03/11/17. She had waxing and waning level of consciousness without focal neurological deficit consistent with delirium of acute onset on the morning of admission. Several etiologies were considered and broad work-up performed (CT head normal; CBC/CMP/cardiac enzymes/TSH/B12/urine toxicology unremarkable except for chronic, mild hyponatremia on admission; blood culture no growth x1d), with etiology favoring anticholinergic syndrome in setting of recent initiation of mirtazepine, given the concomitant presence of urinary retention of 1300cc and moderately dilated pupils, as well as a component of hypertensive urgency given initial SBPs elevated in the 180s. She continued to have waxing and waning level of consciousness throughout the afternoon and evening, but had resolution of encephalopathy on the morning of discharge and was monitored throughout the day without recurrence or other concerns and deemed ready for discharge to home with daughter. Mirtazepine will be discontinued; daughter has already removed from her medication bottles. Encourage medication assistance and close monitoring of symptoms. Discussed return precautions, including neurological deficits, at length. She will follow- up later this week in [place]. - Discharge Data Discharge Date: 02/09/17 Discharge Disposition: Home, Self-Care 01 Condition: Good - Patient Instructions Diet: Usual Diet as Tolerated Activity: As Tolerated Showering/Bathing: August Shower Notify Provider of: Fever, Increased Pain - Discharge Plan Home Medications: Home Meds Diltiazem [Dilacor XR] 240 mg PO BEDTIME 12/03/16 [History] Aspirin [Halfprin] 81 mg PO DAILY 12/21/16 [History] Docusate Sodium [Colace] 100 mg PO BEDTIME 02/08/17 [History] Gabapentin [Neurontin] 300 mg PO BEDTIME 02/08/17 [History] Hydrochlorothiazide 12.5 mg PO QAM 02/08/17 [History] Losartan Potassium 100 mg PO BEDTIME 02/08/17 [History] Referrals: Kavitha Owens MD [Primary Care Provider] - Catia Tariq NP [Nurse Practitioner] - (within 1 week for hospital follow-up ) - Discharge Summary/Plan Comment DC Time >30 min.: Yes - General Info Admission Dx/Problem (Free Text: Acute encephalopathy Subjective Update: Following admission yesterday, she continued to have waxing and waning confusion throughout the afternoon and evening. On the morning of discharge, she had resolution of confusion and had no complaints. Daughter, who stayed with her, states that she is at her baseline mental status. After further discussion with both of them, she has had periods of confusion before in the past and has some baseline memory impairment and confusion. Josefina states she took her medications the night prior to admission, including taking mirtazepine because she wanted help with sleep. She otherwise doesn't remember anything from yesterday and looks to her daughter for many answers to questions, which her daughter says it around her baseline as well. She has no complaints, including any headache, vision changes, numbness, weakness, cardiorespiratory symptoms, abdominal pain, nausea, or dysuria. When re-evaluated on the evening of the day of discharge, she continues to deny any complaints and daughter and her feel she is at her baseline state of health. Nursing has had no concerns throughout the day. - Patient Data Vitals - Most Recent: Last Vital Signs Temp 36.4 C 02/09/17 14:35 Pulse 83 02/09/17 14:35 Resp 16 02/09/17 14:35 BP 127/78 02/09/17 14:35 Pulse Ox 100 02/09/17 14:35 Weight - Most Recent: 62.256 kg I&O - Last 24 hours: Intake & Output 02/09/17 02/09/17 02/09/17 06:59 14:59 22:59 Intake Total 1432 1027 Balance 1432 1027 Lab Results - Last 24 hrs: Laboratory Results - last 24 hr 02/08/17 02/09/17 02/09/17 Range/Units 18:44 07:15 07:15 WBC 9.8 (5.0-10.0) 10^3/uL RBC 4.46 (3.80-5.50) 10^6/uL Hgb 12.6 (12.0-16.0) g/dL Hct 39.2 (37.0-47.0) % MCV 87.8 (82.0-92.0) fL MCH 28.3 (27.0-31.0) pg MCHC 32.2 (32.0-36.0) g/dL RDW 13.1 (11.5-14.5) % Plt Count 230 (150-300) 10^3/uL MPV 7.9 (7.4-10.4) fL Neut % (Auto) 72.4 H (50.0-70.0) % Lymph % (Auto) 18.8 L (20.0-40.0) % [place] % (Auto) 8.0 (2.0-8.0) % Eos % (Auto) 0.1 L (1.0-3.0) % Baso % (Auto) 0.7 (0.0-1.0) % Neut # (Auto) 7.1 H (2.5-7.0) 10^3/uL Lymph # (Auto) 1.8 (1.0-4.0) 10^3/uL [place] # (Auto) 0.8 (0.1-0.8) 10^3/uL Eos # (Auto) 0.0 L (0.1-0.3) 10^3/uL Baso # (Auto) 0.1 (0.0-0.1) 10^3/uL Sodium 135 L (136-145) mmol/L Potassium 3.1 L (3.3-5.3) mmol/L Chloride 100 (98-115) mmol/L Carbon Dioxide 21.9 (21.0-32.0) mmol/L BUN 14 (6-25) mg/dL Creatinine 0.61 (0.51-1.17) mg/dL Est Cr Clr Drug Dosing 66.27 mL/min Estimated GFR (MDRD) > 60 mL/min Glucose 108 (70-110) mg/dL Lactic Acid (0.4-2.0) mmol/L Calcium 8.4 L (8.7-10.3) mg/dL Total Bilirubin 0.5 (0.2-1.0) mg/dL AST 18 (15-37) U/L ALT 20 (12-78) U/L Alkaline Phosphatase 58 (46-116) IU/L Ammonia < 10 L (11-32) umol/L C-Reactive Protein 0.9 (0.0-0.9) mg/dL Total Protein 6.2 L (6.4-8.2) g/dL Albumin 3.03 (3.00-4.80) g/dL TSH, Ultra Sensitive 1.960 (0.340-4.820) uIU/mL 02/09/17 Range/Units 07:15 WBC (5.0-10.0) 10^3/uL RBC (3.80-5.50) 10^6/uL Hgb (12.0-16.0) g/dL Hct (37.0-47.0) % MCV (82.0-92.0) fL MCH (27.0-31.0) pg MCHC (32.0-36.0) g/dL RDW (11.5-14.5) % Plt Count (150-300) 10^3/uL MPV (7.4-10.4) fL Neut % (Auto) (50.0-70.0) % Lymph % (Auto) (20.0-40.0) % [place] % (Auto) (2.0-8.0) % Eos % (Auto) (1.0-3.0) % Baso % (Auto) (0.0-1.0) % Neut # (Auto) (2.5-7.0) 10^3/uL Lymph # (Auto) (1.0-4.0) 10^3/uL Sanborn # (Auto) (0.1-0.8) 10^3/uL Eos # (Auto) (0.1-0.3) 10^3/uL Baso # (Auto) (0.0-0.1) 10^3/uL Sodium (136-145) mmol/L Potassium (3.3-5.3) mmol/L Chloride (98-115) mmol/L Carbon Dioxide (21.0-32.0) mmol/L BUN (6-25) mg/dL Creatinine (0.51-1.17) mg/dL Est Cr Clr Drug Dosing mL/min Estimated GFR (MDRD) mL/min Glucose (70-110) mg/dL Lactic Acid 0.8 (0.4-2.0) mmol/L Calcium (8.7-10.3) mg/dL Total Bilirubin (0.2-1.0) mg/dL AST (15-37) U/L ALT (12-78) U/L Alkaline Phosphatase (46-116) IU/L Ammonia (11-32) umol/L C-Reactive Protein (0.0-0.9) mg/dL Total Protein (6.4-8.2) g/dL Albumin (3.00-4.80) g/dL TSH, Ultra Sensitive (0.340-4.820) uIU/mL Med Orders - Current: Current Medications Acetaminophen (Tylenol) 650 mg PO Q4H PRN PRN Reason: analgesia/fever Acetaminophen (Tylenol) 650 mg RECTAL Q4H PRN PRN Reason: Fever Last Admin: 02/08/17 21:55 Dose: 650 mg Aspirin (Halfprin) 81 mg PO DAILY [facility] Last Admin: 02/09/17 09:42 Dose: 81 mg Diltiazem HCl (Cardizem Cd) 240 mg PO BEDTIME [facility] Last Admin: 02/08/17 21:55 Dose: Not Given Docusate Sodium (Colace) 100 mg PO BEDTIME [facility] Last Admin: 02/08/17 21:55 Dose: Not Given Hydrochlorothiazide (Hydrochlorothiazide) 12.5 mg PO QAM [facility] Last Admin: 02/09/17 09:42 Dose: 12.5 mg Losartan Potassium (Cozaar) 100 mg PO BEDTIME [facility] Last Admin: 02/08/17 21:55 Dose: Not Given Ondansetron HCl (Zofran) 4 mg IVPUSH Q6H PRN PRN Reason: Nausea/Vomiting Last Admin: 02/08/17 16:20 Dose: 4 mg Sodium Chloride (Syrex Flush) 5 ml FLUSH Q8HR PRN PRN Reason: Keep Vein Open Discontinued Medications Atropine Sulfate (Atropine 0.1 Mg/Ml) 0 mg IVPUSH ASDIRECTED PRN PRN Reason: Heart Epinephrine HCl (Epinephrine 1:10,000) 1 mg IVPUSH ASDIRECTED PRN PRN Reason: Heart Sodium Chloride (Normal Saline) 1,000 mls @ 999 mls/hr IV .BOLUS ONE Stop: 02/08/17 11:44 Last Admin: 02/08/17 14:15 Dose: 999 mls/hr Sodium Chloride (Normal Saline) 1,000 mls @ 300 mls/hr IV .BOLUS ONE Stop: 02/09/17 02:09 Last Admin: 02/08/17 22:50 Dose: 300 mls/hr Sodium Chloride (Normal Saline) 1,000 mls @ 125 mls/hr IV ASDIRECTED REBECA Last Admin: 02/09/17 05:47 Dose: 125 mls/hr Labetalol HCl (Normodyne) 10 mg IVPUSH ONETIME ONE PRN Reason: Protocol Stop: 02/08/17 16:41 Last Admin: 02/08/17 17:01 Dose: 10 mg Lidocaine HCl (Xylocaine 2%) 0 mg IVPUSH ASDIRECTED PRN PRN Reason: Heart Nitroglycerin (Nitrostat) 0.4 mg SL ASDIRECTED PRN PRN Reason: Heart Potassium Chloride (Klor-Con M20) 20 meq PO ONETIME ONE Stop: 02/09/17 09:41 Last Admin: 02/09/17 09:42 Dose: 20 meq - Exam Physical Findings Comments:: GENERAL: Elderly white female sitting on hospital bed in no acute distress. Daughter at bedside. HEENT: Normocephalic, atraumatic. Conjunctiva clear, pupils equal round and reactive to light, extraocular movements intact. Nares patent without discharge. Mucous membranes moist, posterior pharynx unremarkable. NECK: Supple, no masses. CV: Regular rate and rhythm, no murmurs, rubs, or gallops. 2+ radial, PT, and DP pulses. PULMONARY: Normal effort, clear to auscultation bilaterally, no wheezes, rales, or rhonchi. ABDOMEN: Positive bowel sounds, soft, nontender, nondistended. EXTREMITIES: Trace non-pitting edema of ankles and lower legs. No cyanosis or clubbing. MUSCULOSKELETAL: Moves all extremities well. NEUROLOGICAL: CN II-XII intact. Sensation intact to light touch in all extremities. Strength 5/5 in distal extremities. No nuchal rigidity or neck pain to palpation. DERMATOLOGIC: No rashes or suspicious lesions in exposed areas. PSYCHIATRIC: Alert, oriented to person/place/year/month/situation, answers questions appropriately, looks to daughter frequently to affirm questions ( which daughter states is her baseline). *Q Meaningful Use (DIS) - VTE *Q VTE Criteria *Q: - Stroke *Q Stroke Criteria *Q: - AMI *Q AMI Criteria *Q:
== END 2017-02-09 18:40 | disposition home or self-care (01) ==
LOC: KA.ED 09:28 → KA.MS 12:04
PROVIDERS: ADMIT Physician Assistant Surgical; ATTEND Family Medicine
DX: G93.40 Encephalopathy, unspecified (principal); I10 Essential (primary) hypertension; R33.9 Retention of urine, unspecified; E87.1 Hypo-osmolality and hyponatremia; E87.8 Other disorders of electrolyte and fluid balance, not elsewhere classified; F41.9 Anxiety disorder, unspecified; E78.00 Pure hypercholesterolemia, unspecified; K21.9 Gastro-esophageal reflux disease without esophagitis; K59.09 Other constipation; F32.9 Major depressive disorder, single episode, unspecified; E11.9 Type 2 diabetes mellitus without complications; Z88.2 Allergy status to sulfonamides; Z79.82 Long term (current) use of aspirin; Z79.899 Other long term (current) drug therapy; Z90.49 Acquired absence of other specified parts of digestive tract; Z90.710 Acquired absence of both cervix and uterus; Z98.890 Other specified postprocedural states
CPT/HCPCS: 36415; 70450; 71010; 80053; 80305; 81001; 82140; 82607; 82962; 83605; 84443; 84484; 85025; 85610; 85730; 86140; 87040; 87086; 93005; 96360; 99285; A9270; J2405; J7030; 96361; 96374; 96375